=== PATIENT | female | born 1990 | race Caucasian/White ===

== ENCOUNTER 2019-11-19 16:15 | Emergency (ER) | payer MEDICAID ==
[~2019-11-19] VITALS: Ht 162.6 cm; Wt 113.4 kg
[2019-11-19 16:22] VITALS: Ht 162.6 cm; Wt 113.4 kg
[2019-11-19 16:49] LABS: BASOPHIL % 0.3 % (0-2)
[2019-11-19 16:50] LABS: PLATELET COUNT 415 x10^3mcL (130-400); RED CELL DISTRIBUTION WIDTH 16.4 % (11.5-14.5)
[2019-11-19 17:23] LABS: CALCIUM 8.6 mg/dL (8.5-10.1); CARBON DIOXIDE 27.9 mmol/L (21-32); CHLORIDE SERUM 102 mmol/L (98-107); CREATININE SERUM 0.8 mg/dL (0.6-1.0); GFR1 > 60 mL/min; POTASSIUM SERUM 3.5 mmol/L (3.5-5.1); SODIUM SERUM 139 mmol/L (136-145)
[2019-11-19 17:37] LABS: ALBUMIN 3.1 g/dL (3.4-5.0)
[2019-11-19] MEDS ORDERED: VITAMIN D50000 I4 PO (17:38)
[2019-11-19 17:39] LABS: GLUCOSE SERUM 155 mg/dL (74-106)
[2019-11-19] MEDS ORDERED: LEVO-T50 MCG PO (17:39)
[2019-11-19] MEDS ORDERED: TOPROL XL50 MG PO (17:40)
[2019-11-19] MEDS ORDERED: AMLODIPINE BES1 CAP PO (17:41)
[2019-11-19 17:43] LABS: ALKALINE PHOSPHATASE 66 U/L (46-116); ALT/SGPT 23 U/L (14-59); AST/SGOT 9 U/L (15-37); BILIRUBIN TOTAL 0.2 mg/dL (0.20-1.00); TOTAL PROTEIN, SERUM 8.1 g/dL (6.4-8.2)
[2019-11-19 18:58] VITALS: BP 128/72
[2019-11-24] MEDS ORDERED: IRON236 MG (21:39)
== END 2019-11-19 18:58 | disposition home or self-care (01) ==
LOC: ED 16:15
PROVIDERS: Emergency Medicine
DX: S70.12XA Contusion of left thigh, initial encounter (principal); L08.9 Local infection of the skin and subcutaneous tissue, unspecified; V49.9XXA Car occupant (driver) (passenger) injured in unspecified traffic accident, initial encounter; Y93.89 Activity, other specified; Y92.488 Other paved roadways as the place of occurrence of the external cause; Y99.8 Other external cause status
CPT/HCPCS: 36415; J0690; J1885; Q0092

== ENCOUNTER 2019-11-29 12:51 | Emergency (ER) | payer MEDICAID ==
[~2019-11-29] VITALS: Ht 162.6 cm; Wt 111.1 kg
[~2019-11-29 12:51] MED LIST: AMLODIPINE BES1 CAP PO; APAP/HYDROCODON1 T13 PO; BLOOD GLUCOSE1 EAC3 MC; BLOOD LANCETS1 EACH TOP; CLEOCIN HCL300 MG PO; EASY COMFORT ALCO70% TOP; IRON236 MG; LEVO-T50 MCG PO; TEST STRIPS1 EACH MC; TOPROL XL50 MG PO; VITAMIN D50000 I4 PO
[2019-11-29 12:57] VITALS: BP 147/54; Ht 162.6 cm; Wt 111.1 kg
== END 2019-11-29 14:14 | disposition home or self-care (01) ==
LOC: ED 12:51
DX: S80.02XD Contusion of left knee, subsequent encounter (principal); E11.9 Type 2 diabetes mellitus without complications; X58.XXXD Exposure to other specified factors, subsequent encounter

== ENCOUNTER 2019-11-30 12:33 | Emergency (ER) | payer MEDICAID ==
[~2019-11-30] VITALS: Ht 162.6 cm; Wt 109.3 kg
[2019-11-30 12:51] VITALS: BP 164/95; Ht 162.6 cm; Wt 109.3 kg
== END 2019-11-30 13:25 | disposition left against medical advice (07) ==
LOC: ED 12:33
DX: Z53.21 Procedure and treatment not carried out due to patient leaving prior to being seen by health care provider (principal)
CPT/HCPCS: 36415